=== PATIENT | male | born 1965 | race Caucasian/White ===

== ENCOUNTER 2016-11-28 13:15 | Day surgery (SDC) | payer OTHER ==
[2016-11-28] MEDS ORDERED: MIDAZOLAM 2 MG/2 ML VIAL IVP ONE (13:21)
[2016-11-28] MEDS ORDERED: PROPOFOL 200 MG/20 ML VIAL IVP ONE (13:21)
[2016-11-28] MEDS ORDERED: NS 500 ML IV ONE (13:21)
[2016-11-28] MEDS ORDERED: fentaNYL 100 MCG/2 ML INJ IVP ONE (13:21)
--- NOTE | 2016-11-28 13:34 | CPEKG ---
Heart Rate: 114 RR Interval: 526 QRSD Interval: 88 QT Interval: 328 QTC Interval: 452 QRS [place]: -25 T Wave [place]: 19 EKG Severity - ABNORMAL ECG - EKG Impression: ATRIAL FIBRILLATION, V-RATE 75-143 EKG Impression: BORDERLINE LEFT AXIS DEVIATION Electronically Signed By: Cameron Nova 28-Nov-2016 23:20:38
[2016-11-28 14:06] LABS: INR 1.25 (0.83-1.16); PROTIME(PATIENT) 15.7 SEC (12.0-15.0)
[2016-11-28 14:07] LABS: APTT 35.9 SEC (23.0-38.0)
[2016-11-28 14:11] LABS: ANION GAP 13 mEq/L (8-16); CALCIUM 10.3 mg/dL (8.5-10.4); CARBON DIOXIDE 23 mEq/l (22-31); CHLORIDE 106 mEq/L (97-110); GLOMERULAR FILTRATION RATE > 60; GLUCOSE 100 mg/dL (70-100); POTASSIUM 4.1 mEq/L (3.5-5.2); SODIUM 142 mEq/L (134-144)
[2016-11-28] MEDS ORDERED: ATROPINE SULFATE 1 MG/10 ML SYR ONE (14:23)
--- NOTE | 2016-11-28 14:31 | PDANEPAE ---
ANE History of Present Illness presents for CV for AF ANE Past Medical History - Pulmonary History Hx COPD: Yes Hx Asthma/Reactive Airway Disease: Yes Hx Recent Upper Respiratory Infection: No Hx Oxygen in Use at Home: No Hx Sleep Apnea: No - Neurologic History Hx Cerebrovascular Accident: No Hx Seizures: No Hx Dementia: No - Endocrine History Hx Diabetes: No Hypothyroid: No Hyperthyroid: No Obesity: no - Renal History Hx Renal Disorders: No - Liver History Hx Hepatic Disorders: No - Neurological & Psychiatric Hx Hx Neurological and Psychiatric Disorders: No - Cancer History Hx Cancer: No - Congenital Disorder History Hx Congenital Disorders: No ANE Review of Systems Review of systems is: negative - Exercise capacity Exercise capacity: >=4 METS ANE Patient History - Allergies Allergies/Adverse Reactions: No Known Allergies Allergy (Unverified 11/28/16 09:25) - Home Medications Home medications: home medication list seen and reviewed Home Medications: Lisinopril 5 mg PO DAILY 11/28/16 [Last Taken Unknown] Metoprolol Succinate PO DAILY 11/28/16 [Last Taken Unknown] Xarelto 20 mg PO DAILY 11/28/16 [Last Taken Unknown] - NPO status NPO Status: no food or drink >8 hours - Smoking Hx Smoking Status: Never smoked ANE Labs/Vital Signs - Labs Result Diagrams: 11/28/16 13:42 - Vital Signs Height: 196 cm Weight: 115.7 kg ANE Physical Exam - Airway Neck exam: FROM Mallampati Score: Class 1 Mouth exam: normal dental/mouth exam - Pulmonary Pulmonary: no respiratory distress - Cardiovascular Cardiovascular: irregularly irregular - ASA Status ASA Status: II ANE Anesthesia Plan Anesthesia Plan: GA with mask
--- NOTE | 2016-11-28 14:44 | PDTEE1 ---
JHONNY Cardioversion Procedure Procedure: Electrical Cardioversion Indications: Atrial Fibrillation Consent: Signed and in Chart Anticoagulation: Xarelto Procedural Details: Pads were placed in anterior-posterior position. JHONNY probe was advanced and standard images obtained. There is no evidence of left atrial or left atrial appendage thrombus. Synchronized cardioversion attempt #1: 200J Results: Normal sinus rhythm Conclusions: Successful Cardioversion
--- NOTE | 2016-11-28 14:49 | CPEKG ---
Heart Rate: 72 RR Interval: 833 P-R Interval: 192 QRSD Interval: 92 QT Interval: 392 QTC Interval: 430 P [place]: 51 QRS [place]: -25 T Wave [place]: 37 EKG Severity - OTHERWISE NORMAL ECG - EKG Impression: SINUS RHYTHM EKG Impression: BORDERLINE LEFT AXIS DEVIATION EKG Impression: SINUS RHYTHM HAS REPLACED ATRIAL FIBRILLATION Electronically Signed By: Cameron Nova 28-Nov-2016 23:21:17
== END 2016-11-28 15:51 | disposition home or self-care (01) ==
LOC: FCATH 13:15
PROVIDERS: ATTEND Internal Medicine Cardiovascular Disease
PROC: 5A2204Z Restoration of Cardiac Rhythm, Single (ICD-10-PCS; principal; 2016-11-28)
DX: I48.1 Persistent atrial fibrillation (principal); H53.8 Other visual disturbances; H57.04 Mydriasis; I10 Essential (primary) hypertension; I77.810 Thoracic aortic ectasia; Z79.01 Long term (current) use of anticoagulants
CPT/HCPCS: J0461; J2704

== ENCOUNTER → 2017-02-24 | Outpatient (CLI) | payer OTHER | LOC: FIMAGING 12:46 | PROVIDERS: ATTEND Psychiatry & Neurology Neurology | DX: H53.9 Unspecified visual disturbance (principal); H57.02 Anisocoria ==

== ENCOUNTER 2018-08-12 12:43 | Day surgery (SDC) | payer OTHER ==
[2018-08-12] MEDS ORDERED: NS 500 ML IV ONE (12:47)
[2018-08-12] MEDS ORDERED: MIDAZOLAM 2 MG/2 ML VIAL IVP ONE (12:47)
[2018-08-12] MEDS ORDERED: ATROPINE SULFATE 1 MG/10 ML SYR IVP ONE (12:47)
[2018-08-12] MEDS ORDERED: fentaNYL 100 MCG/2 ML INJ IVP ONE (12:47)
[2018-08-12 13:38] LABS: INR 1.51 (0.83-1.16); PROTIME(PATIENT) 17.5 SEC (12.0-15.0)
--- NOTE | 2018-08-12 14:03 | PDGENHP ---
History & Physical Chief Complaint: Palpitations History of Present Illness: 53-year-old male with a history of paroxysmal atrial fibrillation and prior cardioversion in 2017. Recently presented with recurrent palpitations and was confirmed to be in atrial fibrillation. Despite medication adjustment on his atrial fibrillation and has been persistent. He is now scheduled for cardioversion. Pertinent Past, Social, Family History: See note by Amira Otero NP from 2018 which has been placed on the chart for informational purposes. Relevant Physical Exam: A&O x 3. Lungs CTA. Irreg irreg rhythm. No edema.
[2018-08-12] MEDS ORDERED: PROPOFOL 200 MG/20 ML VIAL ONE (14:25)
--- NOTE | 2018-08-12 14:36 | PDTEE1 ---
JHONNY Cardioversion Procedure Procedure: electrical cardioversion Indications: atrial fibrillation Consent: signed and in chart Anticoagulation: xarelto Procedural Details: Pads were placed in anterior-posterior position. JHONNY deferred based on consistent anticoagulation for > 4 weeks. Synchronized cardioversion attempt #1: 200J Results: normal sinus rhythm Conclusions: successful cardioversion
--- NOTE | 2018-08-12 14:38 | PDANEPAE ---
ANE History of Present Illness Cardioversion ANE Past Medical History - Cardiovascular History Hx Hypertension: Yes Hx Arrhythmias: Yes - Pulmonary History Hx COPD: Yes Hx Asthma/Reactive Airway Disease: Yes Hx Recent Upper Respiratory Infection: No Hx Oxygen in Use at Home: No Hx Sleep Apnea: No - Neurologic History Hx Cerebrovascular Accident: No Hx Seizures: No Hx Dementia: No - Endocrine History Hx Diabetes: No - Renal History Hx Renal Disorders: No - Liver History Hx Hepatic Disorders: No - Neurological & Psychiatric Hx Hx Neurological and Psychiatric Disorders: No - Cancer History Hx Cancer: No - Congenital Disorder History Hx Congenital Disorders: No ANE Review of Systems Review of Systems: palpitations - Exercise capacity METS (RN): 4 METS ANE Patient History - Allergies Allergies/Adverse Reactions: No Known Allergies Allergy (Unverified 11/28/16 09:25) - Home Medications Home medications: home medication list seen and reviewed Home Medications: Lisinopril 5 mg PO DAILY 11/28/16 [Last Taken Unknown] Metoprolol Succinate PO DAILY 11/28/16 [Last Taken Unknown] Xarelto 20 mg PO DAILY 11/28/16 [Last Taken Unknown] - NPO status NPO Status: no food or drink >8 hours - Anes Hx Anes Hx: no prior problems - Smoking Hx Smoking Status: Never smoked - Alcohol Use Alcohol Use: Heavy - Family Anes Hx Family Anes Hx: none ANE Labs/Vital Signs - Labs Result Diagrams: 08/12/18 13:00 - Vital Signs Vital Signs: reviewed preoperatively; see RN documention for details Height: 195.58 cm Weight: 115.666 kg ANE Physical Exam - Airway Neck exam: FROM Mallampati Score: Class 2 Mouth exam: normal dental/mouth exam - Pulmonary Pulmonary: no respiratory distress - Cardiovascular Cardiovascular: irregularly irregular - ASA Status ASA Status: III ANE Anesthesia Plan Total IV Anesthesia: Yes
--- NOTE | 2018-08-12 14:38 | POSTANESTH ---
Post Anesthetic Evaluation Cardiovascular Status: Normal, Stable Respiratory Status: Normal, Stable, Similar to Pre-op Cond. Level of Consciousness/Mental Status: Can Participate in Eval, Mildly Sleepy, Arousable Pain Control: Adequate, Prn Tx Ordered Nausea/Vomiting Control: Adequate, Prn Tx Ordered Complications Possibly Related to Anesthesia: None Noted
[2018-08-12] MEDS ORDERED: fentaNYL 100 MCG/2 ML INJ IVP PRN (14:39)
[2018-08-12] MEDS ORDERED: NALOXONE HCL 0.4 MG/ML INJ IVP PRN (14:39)
[2018-08-12] MEDS ORDERED: oxyCODONE IR 5 MG TAB PO PRN (14:39)
[2018-08-12] MEDS ORDERED: ONDANSETRON 4 MG/2 ML VIAL IVP PRN (14:39)
[2018-08-12] MEDS ORDERED: HYDROCODONE/APAP 5/325 TAB PO PRN (14:39)
[2018-08-12] MEDS ORDERED: DEXAMETHASONE 4 MG/ML VIAL IVP PRN (14:39)
--- NOTE | 2018-08-13 09:02 | CPEKG ---
Test Reason : OPEN Blood Pressure : / mmHG Vent. Rate : 095 BPM Atrial Rate : 108 BPM P-R Int : 175 ms QRS Dur : 099 ms QT Int : 360 ms P-R-T Axes : 000 -25 025 degrees QTc Int : 453 ms Atrial fibrillation Borderline left axis deviation Confirmed by Niall Estrada ([id number]) on 08/13/2018 9:01:50 AM Referred By: Maurizio De Paz Confirmed By:Niall Estrada
--- NOTE | 2018-08-13 09:07 | CPEKG ---
Test Reason : OPEN Blood Pressure : / mmHG Vent. Rate : 074 BPM Atrial Rate : 074 BPM P-R Int : 190 ms QRS Dur : 101 ms QT Int : 398 ms P-R-T Axes : 038 -39 030 degrees QTc Int : 442 ms Sinus rhythm Left axis deviation Confirmed by Niall Estrada ([id number]) on 08/13/2018 9:07:19 AM Referred By: Maurizio De Paz Confirmed By:Niall Estrada
== END 2018-08-12 15:47 | disposition home or self-care (01) ==
LOC: FCATH 12:43
PROVIDERS: ATTEND Internal Medicine Interventional Cardiology
PROC: 5A2204Z Restoration of Cardiac Rhythm, Single (ICD-10-PCS; principal; 2018-08-12)
DX: I48.0 Paroxysmal atrial fibrillation (principal); I77.810 Thoracic aortic ectasia; I10 Essential (primary) hypertension; J45.909 Unspecified asthma, uncomplicated; Z79.01 Long term (current) use of anticoagulants
CPT/HCPCS: J0461; J2704